=== PATIENT | female | born 1935 | race Caucasian/White ===

== ENCOUNTER → 2017-05-26 | Day surgery (SDC) | payer MEDICARE, OTHER ==
[2017-05-18 14:04] LABS: BASOPHILS % 0.1 % (0.0-1.0); EOSINOPHILS % 0.2 % (0.0-6.0); HEMATOCRIT 40.5 % (34.2-44.1); HEMOGLOBIN 13.1 g/dL (12.0-16.0); LYMPHOCYTES # (AUTO) 1.2 (1.0-3.2); LYMPHOCYTES % 8.4 % (18.0-39.1); MEAN CORPUSCULAR HEMOGLOBIN 30.5 pg (28-32); MEAN CORPUSCULAR HGB CONC 32.3 g/dL (31-35); MEAN CORPUSCULAR VOLUME 94.2 fL (81-99); MONOCYTES # (AUTO) 0.9 (0.2-0.8); MONOCYTES % 5.8 % (4.4-11.3); NEUTROPHILS # (AUTO) 12.6 (2.1-6.9); NEUTROPHILS % 85.1 % (38.7-80.0); PLATELET COUNT 279 x10e3/uL (140-360); RED CELL DISTRIBUTION WIDTH 15.1 % (11.7-14.4)
[~2017-05-26] MED LIST: ALPHAGAN P5 ML OP; BUMETANIDE1 MG PO; BYSTOLIC10 MG PO; CLOPIDOGREL75 MG PO; COMBIVENT RESPIM4 GM IH; FLUOXETINE HCL60 MG PO; HYDROXYCHLOROQ200 MG PO; IPRATROPIU0.2 MG/1 M NEB; LABETALOL HCL 0 ML ONE; LATANOPROST2.5 ML OP; LIDOCAINE HCL 2% LOCAL INJ 5 ML SDV VIAL INJ ONE; LOVASTATIN40 MG PO; MIRTAZAPINE15 MG PO; MONTELUKAST SOD10 MG PO; PANTOPRAZOLE SO40 MG PO; PROPOFOL IV EMULSION 10 MG/ML 50 ML VIAL ONE; PYRIDOSTIGMINE60 MG PO; SPIRONOLACTONE25 MG PO
--- NOTE | 2017-05-26 12:19 | Operative Report ---
DATE OF PROCEDURE: May 26, 2017 REFERRING PHYSICIAN: Dr. Daniel Monroy. PROCEDURE PERFORMED: Esophagogastroduodenoscopy with esophageal dilatation. INDICATIONS FOR ESOPHAGOGASTRODUODENOSCOPY: Dysphagia, nausea and vomiting. MEDICATION: Patient was done under MAC. Please see anesthesiologist's note. PROCEDURE: With the patient in the left lateral decubitus position, the flexible fiberoptic Olympus gastroscope was introduced into the esophagus under direct visualization without any difficulty. There was some patchy erythema noted in the distal esophagus. A mild stricture was noted at the GE junction, and that was dilated to size 48-[place] Mcgovern. The scope was then advanced with ease into the stomach. Mucosa overlying the antrum and the body revealed some diffuse erythema and mild to moderate edema, and biopsies were obtained and sent to stain for H. pylori. The pylorus was of normal contour and shape, was intubated with ease, and the scope was advanced all the way to the 2nd portion of the duodenum. The scope was then withdrawn slowly. Mucosa overlying the proximal 2nd portion and the duodenal bulb appeared to be within normal limits. The scope was then withdrawn back into the stomach and retroflexed, and the mucosa overlying the fundus and the cardia appeared to be within normal limits. The scope was then straightened out. The stomach was decompressed. The scope was subsequently withdrawn. Patient tolerated the procedure well. IMPRESSION: 1. Distal esophagitis. 2. Esophageal stricture at gastroesophageal junction dilated to size 48-[place] Mcgovern. 3. Gastritis biopsied. Biopsies sent to stain for H. pylori. PLAN: Follow up histology. Increase Protonix to 40 mg 1 p.o. a.c. b.i.d. Job#: [id number] EV cc:DANIEL MONROY MD
== END | disposition home or self-care (01) ==
LOC: OR 09:17
PROVIDERS: ATTEND Internal Medicine Gastroenterology
DX: K22.2 Esophageal obstruction (principal); K29.70 Gastritis, unspecified, without bleeding; K20.9 Esophagitis, unspecified; Z01.810 Encounter for preprocedural cardiovascular examination; Z01.812 Encounter for preprocedural laboratory examination; J44.9 Chronic obstructive pulmonary disease, unspecified; I11.0 Hypertensive heart disease with heart failure; I50.9 Heart failure, unspecified; F32.9 Major depressive disorder, single episode, unspecified; F41.9 Anxiety disorder, unspecified; Z79.02 Long term (current) use of antithrombotics/antiplatelets; Z85.3 Personal history of malignant neoplasm of breast
CPT/HCPCS: 36415; 43239; 43450; 85025; 88305; 88312; 93005; J2001